=== PATIENT | male | born 1970 | race African-American/Black ===

== ENCOUNTER 2016-03-03 13:41 | Emergency (ER) | payer BC ==
[2016-03-03 13:58] VITALS: TEMP 97.9
[2016-03-03] MEDS ORDERED: cloNIDine HCL 0.2 MG TAB PO STA (14:22)
--- NOTE | 2016-03-03 14:31 | ED ---
General Adult HPI - General Chief complaint: Recheck/Abnormal Lab/Rx Stated complaint: HTN Time Seen by Provider: 03/03/16 14:12 Source: patient, EMS, RN notes reviewed Mode of arrival: EMS Limitations: no limitations - History of Present Illness Initial comments: Chief complaint history of present illness a 45-year-old male who was sent emergency room from [facility] because of elevated blood pressure. The patient does have a history of hypertension and takes enalapril 20 mg daily. He has no symptoms or complaints. The patient was therefore DOT physical. His blood pressure was found to be 200/110. Here the blood pressure is 203 /103. On retake it was 190/87. - Related Data Home Medications Medication Instructions Recorded Confirmed Cholecalciferol [Vitamin D3] 1,000 unit PO DAILY 03/03/16 03/03/16 Enalapril Maleate [Vasotec] 20 mg PO DAILY 03/03/16 03/03/16 Multivitamin [Men's Multi-Vitamin] 1 tab PO DAILY 03/03/16 03/03/16 Previous Rx's Medication Instructions Recorded amLODIPine BESYLATE [Norvasc] 5 mg PO DAILY #90 tablet 03/03/16 Allergies Allergy/AdvReac Type Severity Reaction Status Date / Time No Known Allergies Allergy Verified 03/03/16 14:06 Review of Systems ROS Statement: Those systems with pertinent positive or pertinent negative responses have been documented in the HPI. Review of systems. Patient has no complaints of visual acuity changes no scalp tightness no dizziness no nausea no vomiting. Patient's denying any neuro deficits. All systems were otherwise reviewed were within normal limits. Past medical problem significant for hypertension and on enalapril 20 mg daily. Patient does not check his blood pressure home. The patient's surgeries include hernia repair as a child. Family history diabetes and hypertension. ALLERGIES none nonsmoker drinks alcohol rarely socially. ROS Other: All systems not noted in ROS Statement are negative. Past Medical History Past Medical History: Hypertension History of Any Multi-Drug Resistant Organisms: None Reported Past Surgical History: Hernia Repair Past Psychological History: No Psychological Hx Reported Smoking Status: Never smoker Past Alcohol Use History: Occasional Past Drug Use History: None Reported General Exam - General Exam Comments Initial Comments: General: The patient is awake and alert, in no distress, and does not appear acutely ill. Patient feels fine. Here because of elevated blood pressure. The patient 's current blood pressure is 203 over 1 await was repeated shortly thereafter at 196/87. Temp 97.9 pulse 81 respiratory rate 20 pulse ox 96% room air Eye: Pupils are equal, round and reactive to light, extra-ocular movements are intact ; there is normal conjunctiva bilaterally. No signs of icterus. Ears, nose, mouth and throat: There are moist mucous membranes and no oral lesions. Neck: The neck is supple, there is no tenderness or JVD. Cardiovascular: There is a regular rate and rhythm. No murmur, rub or gallop is appreciated. Respiratory: Lungs are clear to auscultation, respirations are non-labored, breath sounds are equal. No wheezes, stridor, rales, or rhonchi. Gastrointestinal: Soft, non-distended, non-tender abdomen without masses or organomegaly noted. There is no rebound or guarding present. No CVA tenderness. Bowel sounds are unremarkable. Back: There is no tenderness to palpation in the midline. There is no obvious deformity. No rashes noted. Musculoskeletal: Normal ROM, no tenderness, There is no pedal edema. There is no calf tenderness or swelling. Sensation intact. Pulses equal bilaterally 2+. Neurological: CN II-XII intact, There are no obvious motor or sensory deficits. Coordination appears grossly intact. Speech is normal. No focal or lateralizing findings Skin: Skin is warm and dry and no rashes or lesions are noted. Limitations: no limitations Course Vital Signs 03/03/16 03/03/16 03/03/16 13:50 13:58 14:18 Temperature 97.9 F Pulse Rate 81 90 Pulse Rate [ 78 Chief Embalmer ] Respiratory 18 18 Rate Blood Pressure 203/108 192/89 O2 Sat by Pulse 96 98 Oximetry 03/03/16 14:45 Temperature Pulse Rate 81 Pulse Rate [ Chief Embalmer ] Respiratory 16 Rate Blood Pressure 172/93 O2 Sat by Pulse 96 Oximetry Medical Decision Making - Medical Decision Making Medical decision making; the patient was given Catapres while in emergency room. \The patient be placed on Norvasc 5 mg to take in addition to his enalapril. He did take this every day as directed. Get his blood pressure checked twice daily. And follow-up with his family physician within the next week or return emergency room as needed. Advised to purchase a blood pressure cuff and we did discuss the significance and seriousness of uncontrolled high blood pressure. Patient's blood pressure on discharge 145/80. Patient was advised to buy and use a blood pressure cuff. Told take an extra Norvasc at night of his blood pressures elevated. Follow-up with his family physician within the next 1-4 weeks. Or return emergency room as needed Disposition Clinical Impression: Essential hypertension Disposition: HOME SELF-CARE Condition: Fair Instructions: Hypertension (ED) Additional Instructions: Continue with enalapril each morning plus Norvasc 5 mg in the morning. Take extra Norvasc night a blood pressure elevated. Follow-up with family physician in next 1-2 weeks. Prescriptions: amLODIPine BESYLATE [Norvasc] 5 mg PO DAILY #90 tablet Time of Disposition: 16:10
[2016-03-03 16:21] VITALS: BP 140/75; PULSE 85; RESP 18
== END 2016-03-03 16:21 | disposition home or self-care (01) ==
LOC: EC 13:41
DX: I10 Essential (primary) hypertension (principal); Z79.899 Other long term (current) drug therapy
CPT/HCPCS: 99284

== ENCOUNTER → 2016-03-08 | Outpatient (CLI) | payer BC ==
[2016-03-08 08:12] LABS: ALT 66 U/L (21-72); AST 54 U/L (17-59); Alkaline Phosphatase 57 U/L (38-126); Anion Gap 10 mmol/L; Blood Urea Nitrogen 17 mg/dL (9-20); Calcium 9.8 mg/dL (8.4-10.2); Carbon Dioxide 30 mmol/L (22-30); Chloride 100 mmol/L (98-107); Cholesterol 198 mg/dL (<200); Glucose 101 mg/dL (74-99); HDL Cholesterol 60 mg/dL (40-60); Non-African American GFR(MDRD) >60 (>60 ml/min/1.73 sqM); Potassium 4.6 mmol/L (3.5-5.1); Sodium 140 mmol/L (137-145); Total Bilirubin 0.8 mg/dL (0.2-1.3); Total Protein 8.2 g/dL (6.3-8.2); Triglycerides 102 mg/dL (<150)
[2016-03-08 08:51] LABS: Aty Lym Flag Slight; CH 22.6; CHCM 29.8; HCT 52.8 % (39.0-53.0); HDW 2.54; HGB 15.7 gm/dL (13.0-17.5); Hypochromasia Marked; MCH 22.7 pg (25.0-35.0); MCHC 29.8 g/dL (31.0-37.0); MCV 76.2 fL (80.0-100.0); Mean Platelet Volume 7.1; RBC 6.93 m/uL (4.30-5.90); WBC 5.1 k/uL (3.8-10.6); WBC (Perox) 5.37
[2016-03-08 11:38] LABS: Add Differential Manual Differential
[2016-03-08 11:48] LABS: Nucleated Red Blood Cells 0 /100 WBC (0-0); Total Cells Counted 200
[2016-03-08 11:49] LABS: Target Cells Present
== END | disposition home or self-care (01) ==
LOC: LABWHC1 06:44
PROVIDERS: ATTEND Family Medicine
DX: Z00.00 Encounter for general adult medical examination without abnormal findings (principal)
CPT/HCPCS: 36415; 80053; 80061; 85025

== ENCOUNTER 2016-10-10 02:47 | Inpatient (IN) | payer BC ==
[2016-10-10] MEDS ORDERED: SODIUM CHLORIDE 0.9% 2,000 ML IV STA (03:02)
[2016-10-10 03:03] LABS: Glucose,Whole Blood 562 mg/dL (75-99)
[2016-10-10] MEDS ORDERED: ONDANSETRON 4 MG/2 ML VIAL IVP STA (03:10)
[2016-10-10] MEDS ORDERED: INSULIN REGULAR 100 UNIT/ML VIAL IV ONE (03:11)
--- NOTE | 2016-10-10 03:11 | ED ---
General Adult HPI - General Chief complaint: Recheck/Abnormal Lab/Rx Stated complaint: Male /Tired/Dry Mouth Time Seen by Provider: 10/10/16 02:57 Source: patient, RN notes reviewed Mode of arrival: ambulatory Limitations: no limitations - History of Present Illness Initial comments: 46-year-old male presents emergency Department chief complaint increased thirst , increased urination and dry mouth. Patient states that over this last week he states he just asked whether breath all the time and is constantly thirsty. Patient states he has a history of hypertension no history of diabetes. Patient states he has family history though he had recent lab work a few months back which showed no evidence of diabetes at that time. Patient CT was on prednisone last week but has not taken prednisone in over 1 week. Patient episode of vomiting a day and 1 a few hours ago. Patient states she did drink some vernors but only a very small amount because his stomach felt upset. Patient denies any headache, dizziness, chest pain, shortness of breath, fever or chills - Related Data Home Medications Medication Instructions Recorded Confirmed Cholecalciferol [Vitamin D3] 1,000 unit PO DAILY 03/03/16 10/10/16 Enalapril Maleate [Vasotec] 20 mg PO DAILY 03/03/16 10/10/16 Multivitamin [Men's Multi-Vitamin] 1 tab PO DAILY 03/03/16 10/10/16 Previous Rx's Medication Instructions Recorded amLODIPine BESYLATE [Norvasc] 5 mg PO DAILY #90 tablet 03/03/16 Allergies Allergy/AdvReac Type Severity Reaction Status Date / Time No Known Allergies Allergy Verified 10/10/16 02:55 Review of Systems ROS Statement: Those systems with pertinent positive or pertinent negative responses have been documented in the HPI. ROS Other: All systems not noted in ROS Statement are negative. Past Medical History Past Medical History: Hypertension History of Any Multi-Drug Resistant Organisms: None Reported Past Surgical History: Hernia Repair Past Psychological History: No Psychological Hx Reported Smoking Status: Never smoker Past Alcohol Use History: Occasional Past Drug Use History: None Reported General Exam Limitations: no limitations General appearance: alert, in no apparent distress Head exam: Present: atraumatic, normocephalic, normal inspection Eye exam: Present: normal appearance, PERRL, EOMI. Absent: scleral icterus, conjunctival injection, periorbital swelling ENT exam: Present: normal exam, normal oropharynx Neck exam: Present: normal inspection. Absent: tenderness, meningismus, lymphadenopathy Respiratory exam: Present: normal lung sounds bilaterally. Absent: respiratory distress, wheezes, rales, rhonchi, stridor Cardiovascular Exam: Present: normal rhythm, tachycardia, normal heart sounds. Absent: systolic murmur, diastolic murmur, rubs, gallop, clicks GI/Abdominal exam: Present: soft, normal bowel sounds. Absent: distended, tenderness, guarding, rebound, rigid Neurological exam: Present: alert, oriented X3, CN II-XII intact Skin exam: Present: warm, dry, intact, normal color. Absent: rash Course Vital Signs 10/10/16 02:51 Temperature 98.6 F Pulse Rate 118 H Respiratory 20 Rate Blood Pressure 150/96 O2 Sat by Pulse 99 Oximetry Medical Decision Making - Lab Data Result diagrams: 10/10/16 03:10 10/10/16 03:10 Lab Results 10/10/16 10/10/16 10/10/16 Range/Units 02:59 03:10 03:10 WBC 7.1 (3.8-10.6) k/uL RBC 6.83 H (4.30-5.90) m/uL Hgb 15.9 (13.0-17.5) gm/dL Hct 51.5 (39.0-53.0) % MCV 75.4 L (80.0-100.0) fL MCH 23.3 L (25.0-35.0) pg MCHC 30.8 L (31.0-37.0) g/dL RDW 14.3 (11.5-15.5) % Plt Count 247 (150-450) k/uL Neutrophils % 78 % Lymphocytes % 12 % Monocytes % 6 % Eosinophils % 1 % Basophils % 1 % Neutrophils # 5.5 (1.3-7.7) k/uL Lymphocytes # 0.8 L (1.0-4.8) k/uL Monocytes # 0.4 (0-1.0) k/uL Eosinophils # 0.1 (0-0.7) k/uL Basophils # 0.0 (0-0.2) k/uL Hypochromasia Marked Microcytosis Slight Sodium 140 (137-145) mmol/L Potassium 4.8 (3.5-5.1) mmol/L Chloride 102 (98-107) mmol/L Carbon Dioxide 19 L (22-30) mmol/L Anion Gap 19 mmol/L BUN 25 H (9-20) mg/dL Creatinine 1.20 (0.66-1.25) mg/dL Est GFR (MDRD) Af Amer >60 (>60 ml/min/1.73 sqM) Est GFR (MDRD) Non-Af >60 (>60 ml/min/1.73 sqM) Glucose 741 H* (74-99) mg/dL POC Glucose (mg/dL) 562 H (75-99) mg/dL POC Glu Lithographic Etcher ID Calcium 10.2 (8.4-10.2) mg/dL Total Bilirubin 1.4 H (0.2-1.3) mg/dL AST 50 (17-59) U/L ALT 93 H (21-72) U/L Alkaline Phosphatase 120 (38-126) U/L Total Protein 8.7 H (6.3-8.2) g/dL Albumin 5.2 H (3.5-5.0) g/dL Amylase 81 (30-110) U/L Lipase 149 (23-300) U/L Disposition Clinical Impression: Hyperglycemia, New onset type 2 diabetes mellitus Disposition: ADMITTED IP TO THIS HOSP Condition: Fair Referrals: Sunny Cross MD [Primary Care Provider] - 1-2 days
[2016-10-10 03:38] LABS: Basophils % (A) 1 %; CH 22.7; CHCM 30.2; Eosinophils # (A) 0.1 k/uL (0-0.7); Eosinophils % (A) 1 %; HCT 51.5 % (39.0-53.0); HDW 2.73; HGB 15.9 gm/dL (13.0-17.5); Hypochromasia Marked; Luc # (Auto) 0.23; Luc % (Auto) 3; Lymphocytes # (A) 0.8 k/uL (1.0-4.8); Lymphocytes % (A) 12 %; MCH 23.3 pg (25.0-35.0); MCHC 30.8 g/dL (31.0-37.0); MCV 75.4 fL (80.0-100.0); Mean Platelet Volume 6.9; Microcytosis Slight; Monocytes # (A) 0.4 k/uL (0-1.0); Monocytes % (A) 6 %; Neutrophils # (A) 5.5 k/uL (1.3-7.7); Neutrophils % (A) 78 %; RBC 6.83 m/uL (4.30-5.90); RDW 14.3 % (11.5-15.5); WBC 7.1 k/uL (3.8-10.6); WBC (Perox) 6.79
[2016-10-10 03:40] LABS: ALT 93 U/L (21-72); AST 50 U/L (17-59); Alkaline Phosphatase 120 U/L (38-126); Amylase 81 U/L (30-110); Anion Gap 19 mmol/L; Blood Urea Nitrogen 25 mg/dL (9-20); Calcium 10.2 mg/dL (8.4-10.2); Carbon Dioxide 19 mmol/L (22-30); Chloride 102 mmol/L (98-107); Non-African American GFR(MDRD) >60 (>60 ml/min/1.73 sqM); Potassium 4.8 mmol/L (3.5-5.1); Sodium 140 mmol/L (137-145); Total Bilirubin 1.4 mg/dL (0.2-1.3); Total Protein 8.7 g/dL (6.3-8.2)
[2016-10-10 03:50] LABS: Glucose 741 mg/dL (74-99)
[2016-10-10 03:59] LABS: Glucose,Whole Blood 495 mg/dL (75-99)
[2016-10-10] MEDS ORDERED: INSULIN REGULAR 100 UNIT in SODIUM CHLORIDE 0.9% 100 ML IV SCH (04:00)
[2016-10-10] MEDS: SODIUM CHLORIDE 0.9% 1,000 ML IV SCH ×2 (04:24→16:54)
[2016-10-10 05:01] LABS: Glucose,Whole Blood 354 mg/dL (75-99)
[2016-10-10 05:07] LABS: Appearance,Urine Clear (Clear); Bilirubin,Urine Negative (Negative); Glucose,Urine (UA) 4+ (Negative); Leukocyte Esterase,Urine Negative (Negative); Mucus,Urine Rare /hpf; Nitrite,Urine Negative (Negative); Particle Count 543; Protein,Urine Negative (Negative); RBC,Urine 9 /hpf (0-5); Specific Gravity,Urine 1.029 (1.001-1.035); Squamous Epithelial Cell,Urine <1 /hpf (0-4); UA Billing (MACRO vs. MICRO) MICRO; Urobilinogen,Urine <2.0 mg/dL (<2.0); WBC,Urine <1 /hpf (0-5)
[2016-10-10 05:11] LABS: Ketones,Urine 2+ (Negative)
[2016-10-10 05:47] LABS: Glucose,Whole Blood 312 mg/dL (75-99)
[2016-10-10 06:42] LABS: Glucose,Whole Blood 218 mg/dL (75-99)
[2016-10-10] MEDS: D5-0.45% NACL WITH KCL 20MEQ/L 1,000 ML IV SCH ×2 (07:10→16:52)
[2016-10-10 07:41] LABS: Glucose,Whole Blood 154 mg/dL (75-99)
[2016-10-10 08:55] LABS: Glucose,Whole Blood 80 mg/dL (75-99)
[2016-10-10 09:38] LABS: Glucose,Whole Blood 81 mg/dL (75-99)
[2016-10-10 10:02] LABS: Anion Gap 10 mmol/L; Blood Urea Nitrogen 19 mg/dL (9-20); Carbon Dioxide 28 mmol/L (22-30); Chloride 113 mmol/L (98-107); Glucose 103 mg/dL (74-99); Non-African American GFR(MDRD) >60 (>60 ml/min/1.73 sqM); Phosphorous 2.9 mg/dL (2.5-4.5); Potassium 3.9 mmol/L (3.5-5.1); Sodium 151 mmol/L (137-145)
[2016-10-10 10:37] LABS: Glucose,Whole Blood 112 mg/dL (75-99)
[2016-10-10 11:45] LABS: Glucose,Whole Blood 120 mg/dL (75-99)
[2016-10-10] MEDS ORDERED: INSULIN GLARGINE 100 UNIT/ML 10 ML VIAL SQ SCH (11:50)
[2016-10-10] MEDS: ENOXAPARIN 40 MG/0.4 ML SYRINGE SQ SCH (12:05)
[2016-10-10] MEDS: MULTIVITAMINS, THERA 1 EACH TAB PO SCH (12:05)
[2016-10-10] MEDS: LISINOPRIL 20 MG TAB PO SCH (12:06)
[2016-10-10] MEDS: amLODIPine 5 MG TAB PO SCH (12:06)
[2016-10-10] MEDS: INSULIN LISPRO (humaLOG) 300 UNIT/3 ML VIAL SQ SCH ×3 (13:12→22:03)
[2016-10-10 13:42] LABS: Hemoglobin A1C 10.4 % (4.2-6.1)
--- NOTE | 2016-10-10 16:36 | P.HPIM ---
History of Present Illness H&P Date: 10/10/16 Chief Complaint: Polyuria, polydipsia History of present organ: This is a very pleasant 46-year-old patient of Dr. Cross. Patient's only symptoms significant past no history that of hypertension. For about 1 week patient noticed that has been getting up every 3-4 hours at night to micturate. Also been feeling more thirsty. Denies any weight loss. Patient's found to be in diabetic ketoacidosis in the ER with sugars up in 700s and put on his current drip. Sugars are doing better this morning. Patient does feel a bit tired. GEN.: Tired EYES: None HEENT: None NECK: None RESPIRATORY: None CARDIOVASCULAR: None GASTROINTESTINAL: None GENITOURINARY: As above MUSCULOSKELETAL: None LYMPHATICS: None HEMATOLOGICAL: None PSYCHIATRY: None NEUROLOGICAL: None Past medical history: Essential hypertension Past surgical history: Coronary. Social history: Does not smoke or use alcohol occasionally. Lives by himself. [employer] cat driver Family history: Diabetes mellitus type 2, hypertension Home medications: Reviewed in the computer. ALLERGIES: None VITAL SIGNS: 98.6, 118, 20, 150/96, 99% room air GENERAL: Average built, BMI 34.7 sitting up, tired appearing. EYES: Pupils equal. Conjunctiva normal. HEENT: External appearance of nose and ears normal, oral cavity grossly normal. NECK: JVD not raised; masses not palpable. HEART: First and second heart sounds are normal; no edema. LUNGS: Respiratory rate normal; clear to auscultation. ABDOMEN: Soft, nontender, liver spleen not palpable, no masses palpable. LYMPHATICS: No lymph nodes palpable in the axilla and neck. PSYCH: Alert and oriented x3; mood and affect normal. NEUROLOGICAL: Cranial nerves grossly intact; no facial asymmetry, power and sensation grossly intact. Investigations: White count 7.1, potassium 4.8, BUN 25, glucose 741, HbA1c 10.4, bilirubin 1.4, UA negative for protein, serum acetone positive on admission Assessment: -New onset diabetes mellitus type 1 presented with diabetic ketoacidosis, patient insulin drip -Essential hypertension -Obesity BMI 34.7 Plan: Patient on an overnight was on insulin drip. We'll switch to Lantus today 20 units and 5 units with meals. Keep a close and Accu-Cheks. We'll check lipid profile in the morning. We'll also put the patient on a small dose of TANISHA inhibitor. And check lipid profile. Care was discussed the patient and questions were answered. Past Medical History Past Medical History: Hypertension History of Any Multi-Drug Resistant Organisms: None Reported Past Surgical History: Hernia Repair Smoking Status: Never smoker - Past Family History Mother Family Medical History: Diabetes Mellitus, Hypertension Medications and Allergies Home Medications Medication Instructions Recorded Confirmed Type Enalapril Maleate [Vasotec] 20 mg PO DAILY 03/03/16 10/10/16 History Multivitamin [Men's Multi-Vitamin] 1 tab PO DAILY 03/03/16 10/10/16 History amLODIPine [Norvasc] 10 mg PO DAILY 10/10/16 10/10/16 History Allergies Allergy/AdvReac Type Severity Reaction Status Date / Time No Known Allergies Allergy Verified 10/10/16 07:30 Physical Exam Vitals: Vital Signs Temp Pulse Pulse Resp BP BP Pulse Ox 10/10/16 16:00 98.4 F 91 20 136/75 97 10/10/16 11:00 98.3 F 98 20 137/91 98 10/10/16 10:04 97.4 F L 79 18 118/76 99 10/10/16 07:22 107 H 18 120/79 98 10/10/16 05:08 96 20 162/93 98 10/10/16 02:51 98.6 F 118 H 20 150/96 99 Intake and Output 10/10/16 10/10/16 10/10/16 06:59 14:59 22:59 Intake Total 16.274 449.654 Balance 16.274 449.654 Intake: Intake, IV Titration 16.274 449.654 Amount D5-0.45% NaCl with KCl 400 20Meq/l 1,000 ml @ 100 mls/hr IV .Q10H BON Rx#: [id number] Insulin Regular 100 unit 16.274 49.654 In Sodium Chloride 0.9% 100 ml @ 0.1 UNITS/KG/HR 12.36 mls/hr IV .Q8H11M BON Rx#:[id number] Other: Weight 122.47 kg Results CBC & Chem 7: 10/10/16 03:10 10/10/16 09:40
[2016-10-10 17:23] LABS: Glucose,Whole Blood 273 mg/dL (75-99)
[2016-10-10 20:39] LABS: Glucose,Whole Blood 409 mg/dL (75-99)
[2016-10-10] MEDS ORDERED: INSULIN NPH/REG INSULIN 70/30 300 UNIT/3 ML VIAL SQ ONE (21:08)
[2016-10-11] MEDS: SODIUM CHLORIDE 0.9% 1,000 ML IV SCH ×2 (01:54→18:43)
[2016-10-11 05:38] LABS: Glucose,Whole Blood 326 mg/dL (75-99)
[2016-10-11] MEDS: D5-0.45% NACL WITH KCL 20MEQ/L 1,000 ML IV SCH (06:49)
[2016-10-11 06:54] LABS: Anion Gap 8 mmol/L; Blood Urea Nitrogen 18 mg/dL (9-20); Calcium 8.7 mg/dL (8.4-10.2); Carbon Dioxide 24 mmol/L (22-30); Chloride 103 mmol/L (98-107); Glucose 414 mg/dL (74-99); Non-African American GFR(MDRD) >60 (>60 ml/min/1.73 sqM); Potassium 4.6 mmol/L (3.5-5.1); Sodium 135 mmol/L (137-145)
[2016-10-11 06:57] LABS: Basophils # (A) 0.1 k/uL (0-0.2); Basophils % (A) 1 %; CH 23.8; CHCM 30.9; Eosinophils % (A) 1 %; HCT 44.3 % (39.0-53.0); HDW 2.65; HGB 13.1 gm/dL (13.0-17.5); Hypochromasia Slight; Luc # (Auto) 0.23; Luc % (Auto) 3; Lymphocytes # (A) 2.1 k/uL (1.0-4.8); Lymphocytes % (A) 30 %; MCHC 29.7 g/dL (31.0-37.0); MCV 77.4 fL (80.0-100.0); Mean Platelet Volume 7.5; Monocytes # (A) 0.4 k/uL (0-1.0); Monocytes % (A) 6 %; Neutrophils # (A) 4.2 k/uL (1.3-7.7); Neutrophils % (A) 60 %; RBC 5.72 m/uL (4.30-5.90); WBC (Perox) 7.48
[2016-10-11] MEDS: ENOXAPARIN 40 MG/0.4 ML SYRINGE SQ SCH (08:37)
[2016-10-11] MEDS: amLODIPine 5 MG TAB PO SCH (08:38)
[2016-10-11] MEDS: LISINOPRIL 20 MG TAB PO SCH (08:38)
[2016-10-11] MEDS: INSULIN LISPRO (humaLOG) 300 UNIT/3 ML VIAL SQ SCH ×7 (08:40→21:52)
[2016-10-11] MEDS ORDERED: INSULIN GLARGINE 100 UNIT/ML 10 ML VIAL SQ SCH ×2 (09:00→21:00)
[2016-10-11 11:44] LABS: Glucose,Whole Blood 212 mg/dL (75-99)
[2016-10-11 11:58] VITALS: BMI 34.3
[2016-10-11] MEDS: INSULIN GLARGINE 100 UNIT/ML 10 ML VIAL SQ SCH (12:26)
[2016-10-11] MEDS: MULTIVITAMINS, THERA 1 EACH TAB PO SCH (12:27)
[2016-10-11 12:36] LABS: Hemoglobin A1C 10.8 % (4.2-6.1)
[2016-10-11 17:01] LABS: Glucose,Whole Blood 91 mg/dL (75-99)
--- NOTE | 2016-10-11 17:25 | P.PN ---
<Suzanna Middleton - Last Filed: 10/11/16 17:12> Progress Note - Text DATE OF SERVICE: 10/11/2016 PRESENTING COMPLAINT: Polyuria, polydipsia HISTORY OF PRESENT ILLNESS: This is a 46-year-old male who noticed he had to get up every 3-4 hours to urinate, feeling more thirsty. Found to be in diabetic ketoacidosis with sugars in the 700s placed on a insulin drip and was admitted for the same. INTERVAL HISTORY: 10/11/2016: Patient lying in bed appears comfortable. Has continued to have relatively high sugars between 300 and 400 through the night, adjustments made to his insulin regimen this morning. Ambulatory in the room and cazares's, tolerating his diet, moved his bowels yesterday. Diabetic education and dietitian expected later on today to continue with diabetic education. REVIEW OF SYSTEMS: Done for constitutional ,cardiovascular, GI, pulmonary endocrine with relevant findings as above. CURRENT MEDICATIONS Norvasc, Lipitor, Lovenox, Lantus, Humalog, Zestril, multivitamin. PHYSICAL EXAM VITAL SIGNS: Temperature 98.0, pulse 103, respiratory rate 17, blood pressure 120/74, oxygen saturation 94% on room air. GENERAL: sitting up, tired appearing. EYES: Pupils equal. Conjunctiva normal. NECK: JVD not raised; masses not palpable. HEART: First and second heart sounds are normal; no edema. LUNGS: Respiratory rate normal; clear to auscultation. ABDOMEN: Soft, nontender, liver spleen not palpable, no masses palpable. PSYCH: Alert and oriented x3; mood and affect normal. INVESTIGATIONS: Hemoglobin 13.1, sodium 135, Accu-Cheks 91-409 ASSESSMENT: -New onset diabetes mellitus type 1 presented with diabetic ketoacidosis, patient insulin drip -Essential hypertension -Obesity BMI 34.7 PLAN: Lantus adjusted to 38 units daily and Humalog with meals at 8 units at each meal. We'll continue to watch Accu-Cheks closely. If blood sugars are maintained appropriately through the night may discharge home tomorrow. Plan of care discussed with the patient at the bedside he is in agreement. We'll continue to follow closely. SHOP WORKER statement: Patient was seen and examined by nurse practitioner Suzanna Middleton and all elements of the case discussed with attending Dr. Kern <Moo Kern Last Filed: 10/12/16 17:34> Progress Note - Text Attending note. Date of service-10/11/2016 This patient was seen and examined by me . Discussed the patient with my nurse practitioner Ms. Middleton. Admitted with new onset DKA. Started on Lantus and Humalog. sugars running on the high side On examination: Lungs-clear, cardiovascular first seconds are normal Investigations: Accu-Cheks noted Assessment and plan: New-onset diabetes mellitus type 1. Dose of Lantus and Humalog being adjusted. Care was discussed with the patient. Diabetic teaching to be done.
[2016-10-11 21:00] LABS: Glucose,Whole Blood 214 mg/dL (75-99)
[2016-10-12 07:22] LABS: Glucose,Whole Blood 246 mg/dL (75-99)
[2016-10-12 07:23] VITALS: BP 140/90; PULSE 68; RESP 16; TEMP 97.3
[2016-10-12] MEDS: amLODIPine 5 MG TAB PO SCH (08:10)
[2016-10-12] MEDS: ENOXAPARIN 40 MG/0.4 ML SYRINGE SQ SCH (08:11)
[2016-10-12] MEDS: INSULIN LISPRO (humaLOG) 300 UNIT/3 ML VIAL SQ SCH ×3 (08:13→12:21)
[2016-10-12] MEDS: INSULIN GLARGINE 100 UNIT/ML 10 ML VIAL SQ SCH (08:17)
[2016-10-12 08:49] LABS: Basophils % (A) 1 %; CH 23.9; CHCM 31.1; Eosinophils % (A) 0 %; HCT 42.9 % (39.0-53.0); HDW 2.62; HGB 12.8 gm/dL (13.0-17.5); Hypochromasia Slight; Luc # (Auto) 0.17; Luc % (Auto) 4; Lymphocytes # (A) 1.6 k/uL (1.0-4.8); Lymphocytes % (A) 33 %; MCH 23.1 pg (25.0-35.0); MCHC 29.8 g/dL (31.0-37.0); MCV 77.5 fL (80.0-100.0); Mean Platelet Volume 7.5; Monocytes # (A) 0.3 k/uL (0-1.0); Monocytes % (A) 7 %; Neutrophils # (A) 2.7 k/uL (1.3-7.7); Neutrophils % (A) 56 %; RBC 5.53 m/uL (4.30-5.90); RDW 14.6 % (11.5-15.5); WBC 4.8 k/uL (3.8-10.6); WBC (Perox) 4.85
[2016-10-12] MEDS: LISINOPRIL 20 MG TAB PO SCH (08:58)
[2016-10-12] MEDS ORDERED: ATORVASTATIN 20 MG TAB PO SCH (09:00)
[2016-10-12 09:25] LABS: Anion Gap 7 mmol/L; Blood Urea Nitrogen 17 mg/dL (9-20); Calcium 8.5 mg/dL (8.4-10.2); Carbon Dioxide 24 mmol/L (22-30); Chloride 101 mmol/L (98-107); Cholesterol 176 mg/dL (<200); Glucose 349 mg/dL (74-99); HDL Cholesterol 49 mg/dL (40-60); Non-African American GFR(MDRD) >60 (>60 ml/min/1.73 sqM); Potassium 4.8 mmol/L (3.5-5.1); Sodium 132 mmol/L (137-145)
[2016-10-12] MEDS ORDERED: INSULIN GLARGINE 100 UNIT/ML 10 ML VIAL SQ STA (09:25)
[2016-10-12 12:00] LABS: Glucose,Whole Blood 245 mg/dL (75-99)
[2016-10-12] MEDS: MULTIVITAMINS, THERA 1 EACH TAB PO SCH (12:21)
--- NOTE | 2016-10-12 18:12 | P.DS ---
<EmiSuzanna A - Last Filed: 10/12/16 17:56> Providers Date of admission: 10/10/16 03:51 Expected date of discharge: 10/12/16 Attending physician: Moo Kern Primary care physician: [facility] [place] [facility] Course: FINAL DIAGNOSES: -New onset diabetes mellitus type 1 presented with diabetic ketoacidosis, patient insulin drip -Essential hypertension -Obesity BMI 34.7 HOSPTIAL COURSE: 46-year-old male with history of hypertension, presented to the emergency department after a week of having frequent urination and polydipsia. Blood sugar was found in the 700s and to be in diabetic ketoacidosis. Patient admitted for the same insulin drip initiated blood glucose monitored, anion gap normalized, patient placed on subcutaneous insulin. Monitoring continued, additional adjustments made to injectable insulin. Diabetes education provided necessary tools for management of diabetes at home. Blood glucose improved, patient feels confident in his ability to manage his blood glucose condition overall stabilized the patient would like to go home. PHYSICAL EXAM: CARDIOVASCULAR: First and second sounds noted no edema RESPIRATORY: Effort normal bilateral breath sounds clear to auscultation ENDOCRINE: Blood glucose between 91 and 245, polydipsia and polyuria resolved. Patient was seen and examined by nurse practitioner Suzanna Middleton in all elements of the case discussed with attending Dr. Kern DISPOSITION: Home to the care of his family. Patient Condition at Discharge: Stable Plan - Discharge Summary New Discharge Prescriptions: New amLODIPine [Norvasc] 5 mg PO DAILY tab Atorvastatin [Lipitor] 40 mg PO HS #30 tab Insulin Glargine [Lantus] 36 unit SQ DAILY #1 vial INSULIN LISPRO (HumaLOG) [HumaLOG] 8 units SQ AC-TID #1 vial Continue Multivitamin [Men's Multi-Vitamin] 1 tab PO DAILY Enalapril Maleate [Vasotec] 20 mg PO DAILY Discontinued amLODIPine [Norvasc] 10 mg PO DAILY Discharge Medication List Enalapril Maleate [Vasotec] 20 mg PO DAILY 03/03/16 [History] Multivitamin [Men's Multi-Vitamin] 1 tab PO DAILY 03/03/16 [History] Atorvastatin [Lipitor] 40 mg PO HS #30 tab 10/12/16 [Rx] INSULIN LISPRO (HumaLOG) [HumaLOG] 8 units SQ AC-TID #1 vial 10/12/16 [Rx] Insulin Glargine [Lantus] 36 unit SQ DAILY #1 vial 10/12/16 [Rx] amLODIPine [Norvasc] 5 mg PO DAILY tab 10/12/16 [Rx] Follow up Appointment(s)/Referral(s): Sunny Cross MD [Primary Care Provider] - 3 Days Patient Instructions/Handouts: Type 2 Diabetes in Adults (DC) Activity/Diet/Wound Care/Special Instructions: carb consistent Discharge/Stand Alone Forms: Work/School Release, Work/School Release / Restrict Discharge Disposition: HOME SELF-CARE <Moo Kern - Last Filed: 10/13/16 19:09> Hospital Course: Attending note. Date of service-10/12/2016 This patient was seen and examined by me . Discussed the patient with my nurse practitioner Ms. Middleton. Admitted with DKA. Doing much better. Insulin adjusted. Had a talk to the patient. On examination: Abdomen soft nontender lungs-clear cardiovascular first seconds are normal Investigations: Accu-Cheks noted, LDL 103 Assessment and plan: Acute DKA now patient being discharged on insulin./Hyperlipidemia/essential hypertension/obesity. Care discussed in detail with the patient. Discharge planning more than 35 minutes
[2016-10-12] MEDS ORDERED: ATORVASTATIN 40 MG TAB PO SCH (21:00)
== END 2016-10-12 13:31 | disposition home or self-care (01) | DRG 639 ==
LOC: EC 02:47 → 6SEL 03:51 → 6ICU 06:42 → 6SEL 08:45 → 4MS4W 10-11 15:57
PROVIDERS: ADMIT Hospitalist; ATTEND Hospitalist
DX: E10.10 Type 1 diabetes mellitus with ketoacidosis without coma (principal); I10 Essential (primary) hypertension; E78.5 Hyperlipidemia, unspecified; E66.9 Obesity, unspecified; Z68.34 Body mass index [BMI] 34.0-34.9, adult; Z79.899 Other long term (current) drug therapy; Z82.49 Family history of ischemic heart disease and other diseases of the circulatory system
CPT/HCPCS: 36415; 80048; 80051; 80053; 80061; 81001; 82009; 82150; 82565; 82947; 83036; 83690; 84100; 84520; 85025; 96361; 96365; 96366; 96375; 99284

== ENCOUNTER 2020-08-04 13:53 | Emergency (ER) | payer BC, OTHER ==
[2020-08-04 13:59] VITALS: BP 146/91; PULSE 79; RESP 18; TEMP 97.9
[2020-08-04] MEDS ORDERED: LIDOCAINE 1% INJ 10MG/ML (20 ML MDV) SQ ONE (15:36)
--- NOTE | 2020-08-04 15:37 | ED ---
Wound/Laceration HPI - General Chief Complaint: Wound/Laceration Stated Complaint: [facility] -R arm laceration Time Seen by Provider: 08/04/20 15:22 Source: patient Mode of arrival: ambulatory Limitations: no limitations - History of Present Illness Initial Comments: 49year-old male presents to emergency department with a chief complaint of laceration that occurred about one hour prior to arrival while he was at work. Patient reports a piece of metal slipped and lacerated the midshaft of his right forearm. Reports there was some bleeding which is since resolved. Tetanus is up-to-date. Reports minimal pain at the injury site. Denies alleviating or aggravating factors. Denies paresthesias. - Related Data Home Medications Medication Instructions Recorded Confirmed Enalapril Maleate [Vasotec] 20 mg PO DAILY 03/03/16 10/10/16 Multivitamin [Men's Multi-Vitamin] 1 tab PO DAILY 03/03/16 10/10/16 Previous Rx's Medication Instructions Recorded Atorvastatin [Lipitor] 40 mg PO HS #30 tab 10/12/16 INSULIN LISPRO (HumaLOG) [HumaLOG] 8 units SQ AC-TID #1 vial 10/12/16 Insulin Glargine [Lantus] 36 unit SQ DAILY #1 vial 10/12/16 amLODIPine [Norvasc] 5 mg PO DAILY tab 10/12/16 Allergies Allergy/AdvReac Type Severity Reaction Status Date / Time No Known Allergies Allergy Verified 08/04/20 13:59 Review of Systems ROS Statement: Those systems with pertinent positive or pertinent negative responses have been documented in the HPI. ROS Other: All systems not noted in ROS Statement are negative. Past Medical History Past Medical History: Diabetes Mellitus, Hypertension History of Any Multi-Drug Resistant Organisms: None Reported Past Surgical History: Hernia Repair Past Psychological History: No Psychological Hx Reported Smoking Status: Former smoker Past Alcohol Use History: None Reported Past Drug Use History: None Reported - Past Family History Mother Family Medical History: Diabetes Mellitus, Hypertension General Exam Limitations: no limitations General appearance: alert, in no apparent distress Head exam: Present: atraumatic, normocephalic, normal inspection Eye exam: Present: normal appearance, PERRL, EOMI Pupils: Present: normal accommodation ENT exam: Present: normal exam, normal oropharynx, mucous membranes moist Neck exam: Present: normal inspection, full ROM Respiratory exam: Present: normal lung sounds bilaterally. Absent: respiratory distress Cardiovascular Exam: Present: regular rate, normal rhythm, normal heart sounds. Absent: systolic murmur Extremities exam: Present: full ROM, normal capillary refill, other (Sensation intact in the right upper extremity). Absent: normal inspection (Superficial laceration on the right forearm measuring approximately 4 cm in length), tenderness, pedal edema, joint swelling, calf tenderness Back exam: Present: normal inspection, full ROM. Absent: tenderness Neurological exam: Present: alert, oriented X3 Psychiatric exam: Present: normal affect, normal mood Skin exam: Present: warm, dry, intact, normal color Course Vital Signs 08/04/20 13:57 Temperature 97.9 F Pulse Rate 79 Respiratory 18 Rate Blood Pressure 146/91 O2 Sat by Pulse 98 Oximetry Procedures - Laceration Laceration #1 Consent Obtained: verbal consent Indication: laceration Site: upper extremity Size (cm): 3 Description: linear, clean Depth: simple, single layer Sedation/Analgesia: none Anesthetic Used: lidocaine 1% Anesthesia Technique: local infiltration Amount (mls): 5 Pre-repair: irrigated extensively, deep structures intact Type of Sutures: nylon Size of Sutures: 4-0 Number of Sutures: 4 Technique: simple, interrupted Patient Tolerated Procedure: well, no complications Medical Decision Making - Medical Decision Making 49-year-old male presents to the emergency department with chief complaint of laceration. Laceration appears to be on the right forearm measuring approximately 3 cm in length. Superficial. This was thoroughly irrigated and repaired with 4 sutures. Patient's heart procedure well. Tetanus is up-to- date. Return parameters discussed patient was up standing and agreeable. Advised to return for suture removal. Case discussed with Dr. Estevez. Disposition Clinical Impression: Laceration Disposition: HOME SELF-CARE Condition: Stable Instructions (If sedation given, give patient instructions): Care For Your Stitches (DC), Laceration (DC) Additional Instructions: Please return to the emergency room in 8-10 days to have sutures removed. Please watch for any signs of infection which may include increased pain, swelling, redness, fever or chills. Please return to emergency room for any signs of infection do occur. Please use clean soap and water over the area to prevent scabbing over your stitches. Please leave wound covered for the first 24-48 hours and then leave wound open to air. Please return to the emergency room for any other concerns. Is patient prescribed a controlled substance at d/c from ED?: No Referrals: Sunny Cross MD [Primary Care Provider] - 1-2 days Time of Disposition: 16:14
== END 2020-08-04 16:32 | disposition home or self-care (01) ==
LOC: EC 13:53
DX: S51.811A Laceration without foreign body of right forearm, initial encounter (principal); E11.9 Type 2 diabetes mellitus without complications; I10 Essential (primary) hypertension; Z87.891 Personal history of nicotine dependence; Z79.4 Long term (current) use of insulin; W26.8XXA Contact with other sharp object(s), not elsewhere classified, initial encounter; Y92.89 Other specified places as the place of occurrence of the external cause; Y99.0 Civilian activity done for income or pay
CPT/HCPCS: 99282; 12032; J2001